=== PATIENT | female | born 2000 | race Caucasian/White ===

== ENCOUNTER 2022-03-04 05:52 | Inpatient (IN) ==
[2022-03-04 06:07] VITALS: BMI 40.2
[2022-03-04 06:20] LABS: BILIRUBIN,URINE NEGATIVE (NEGATIVE); BLOOD/HEMOGLOBIN,URINE 1+ (NEGATIVE); GLUCOSE, URINE NEGATIVE (NEGATIVE); KETONES,URINE NEGATIVE (NEGATIVE); LEUKOCYTE ESTERASE ,URINE 1+ (NEGATIVE); NITRITES,URINE NEGATIVE (NEGATIVE); PROTEIN,URINE NEGATIVE (NEGATIVE); UROBILINOGEN,URINE NORMAL (NORMAL)
[2022-03-04 06:29] LABS: APPEARANCE,URINE CLEAR (CLEAR); BACTERIA,URINE NEGATIVE /HPF (NEGATIVE); COLOR,URINE YELLOW (YELLOW); RBC,URINE 0-2 /HPF (0-3); SQUAMOUS EPITHELIAL CELL,UR MANY /HPF (NEGATIVE)
[2022-03-04 06:30] LABS: AMNISURE ROM TEST THERE IS A RUPTURE (NO RUPTURE)
[2022-03-04] MEDS ORDERED: STADOL INJ IVP PRN (07:00)
[2022-03-04] MEDS ORDERED: D5 LR + PITOCIN 10 UNITS/L 10 UNITS/1,000 ML BAG IV PRN (07:00)
[2022-03-04] MEDS ORDERED: PITOCIN ONE ×3 (07:42→16:05)
[2022-03-04] MEDS ORDERED: D5 1/2 NS 1,000 ML 1,000 ML IV ONE (07:43)
[2022-03-04] MEDS ORDERED: D5 LR + PITOCIN 10 UNITS/L 10 UNITS/1,000 ML BAG IV ONE (07:43)
[2022-03-04] MEDS ORDERED: BETADINE SOLN ONE (07:43)
[2022-03-04] MEDS ORDERED: D5 1/2 NS 1,000 mL + PITOCIN 20 UNITS/L IV 20 UNITS/1,000 ML BAG IV ONE (07:44)
[2022-03-04] MEDS ORDERED: AMPICILLIN VIAL 2 GRAM 2 G in NS 100 ML IV 100 ML IV NR (08:00)
[2022-03-04] MEDS ORDERED: PHENERGAN INJ 25 MG IM PRN ×2 (08:02→17:47)
[2022-03-04] MEDS ORDERED: PITOCIN IVP ONE (08:02)
[2022-03-04] MEDS ORDERED: REGLAN INJ 10 MG VIAL IVP PRN ×2 (08:02→17:47)
[2022-03-04] MEDS ORDERED: NS 100 ML IV 100 ML ONE ×3 (08:11→15:28)
[2022-03-04] MEDS ORDERED: AMPICILLIN VIAL 2 GRAM ONE (08:11)
[2022-03-04 08:49] LABS: BLOOD UREA NITROGEN 4 mg/dL (7-18); CARBON DIOXIDE 22.9 mmol/L (21-32); CHLORIDE 106 mmol/L (98-107); CREATININE 0.51 mg/dL (0.55-1.02); SODIUM 139 mmol/L (136-145); eGFR NON BLACK RACES > 60 (>60)
[2022-03-04 08:51] LABS: BASOPHILS % (AUTO) 0.1 % (0.2-1.0); EOSINOPHILS # (AUTO) 0.1 x10^3/uL (0.0-0.2); EOSINOPHILS % (AUTO) 0.6 % (0.9-2.9); HEMATOCRIT 31.2 % (36.0-47.0); HEMOGLOBIN 10.7 g/dL (12.0-16.0); LYMPHOCYTES # (AUTO) 1.9 X10^3/uL (1.3-2.9); MEAN CORPUSCULAR HEMOGLOBIN 26.2 pg (27.0-34.0); MEAN CORPUSCULAR HGB CONC 34.2 g/dL (33.0-35.0); MEAN CORPUSCULAR VOLUME 76.6 fL (80.0-100.0); MEAN PLATELET VOLUME 8.8 fL (7.4-11.0); MONOCYTES # (AUTO) 0.6 x10^3/uL (0.3-0.8); MONOCYTES % (AUTO) 5.6 % (0.0-13.0); NEUTROPHILS # (AUTO) 8.2 x10^3/uL (2.2-4.8); NEUTROPHILS % (AUTO) 75.7 % (42.0-75.0); RED BLOOD COUNT 4.07 X10^6/uL (3.5-5.4); RED CELL DISTRIBUTION WIDTH 14.6 % (11.6-16.5); WHITE BLOOD COUNT 10.8 X10^3/uL (3.6-10.0)
[2022-03-04] MEDS ORDERED: D5 1/2 NS 1,000 ML 1,000 ML IV SCH (09:00)
--- NOTE | 2022-03-04 09:32 | DR.OB ---
OB Quick Note - Assessment/Plan Assessment/Plan: L&D 03/04/22 at 9:10am Pitocin=4mu/min. Ampicillin S-No complaint. O-Afebrile,VSS SAL=261 with good LTV, +accel, no decel. CTX=q 1 1/2 to 2 min., mild to moderate by palpation CVX=2cm/50%/-1/VTX SROM with clear fluid. IUPC and FSE placed. A-IUP at 38 6/7 weeks with SROM +GBS P-Continue pitocin induction ABX in labor for +GBS Anticipate
[2022-03-04] MEDS ORDERED: TYLENOL 500 MG TAB EXTRA STRENGTH PO ONE ×2 (09:50→09:54)
[2022-03-04] MEDS ORDERED: REGLAN INJ 10 MG VIAL ONE ×2 (10:55→15:41)
[2022-03-04] MEDS ORDERED: STADOL INJ ONE (11:12)
[2022-03-04] MEDS ORDERED: FENTANYL VIAL INJ 100 mcg ONE ×3 (11:36→16:52)
[2022-03-04] MEDS ORDERED: LR 1,000 ML IV 1,000 ML IV ONE ×3 (11:36→15:49)
[2022-03-04] MEDS ORDERED: NAROPIN EPIDURAL 0.2% 100 ML ONE (11:37)
[2022-03-04] MEDS ORDERED: AMPICILLIN VIAL 1 GRAM 1 G in NS 50 ML IV + SPIKE MINIBAG* 50 ML IV SCH (12:06)
[2022-03-04] MEDS ORDERED: AMPICILLIN VIAL 1 GRAM ONE (13:38)
[2022-03-04] MEDS ORDERED: ANCEF VIAL 1 GRAM ONE (15:27)
[2022-03-04] MEDS ORDERED: XYLOCAINE-MPF 2% ONE (15:36)
[2022-03-04] MEDS ORDERED: PEPCID 20 MG VIAL ONE (15:41)
[2022-03-04] MEDS ORDERED: ZOFRAN INJ 4 MG VIAL ONE ×2 (15:41)
[2022-03-04] MEDS ORDERED: DILAUDID INJ ONE (16:18)
[2022-03-04] MEDS ORDERED: VERSED ONE (16:25)
[2022-03-04] MEDS ORDERED: KETAMINE HCL ONE (16:26)
[2022-03-04] MEDS ORDERED: DIPRIVAN VIAL 20 ML ONE ×2 (16:47→16:50)
--- NOTE | 2022-03-04 17:45 | DR.OB ---
OB Quick Note - Assessment/Plan Assessment/Plan: L&D 03/04/22 at 15:20 Pitocin=12mu/min. Ampicillin S-No complaint. s/p epidural. O-Afebrile,VSS TOL=020 with good LTV, +accel, no decel. CTX=q 1 1/2 min., about 55-65mmHg CVX=3-4cm/75%/-1 (no change in 4 hours) with caput noted A-IUP at 39 1/7 weeks with failure to dilate P-To C/S
[2022-03-04] MEDS ORDERED: BENADRYL INJ 50 MG VIAL IVP PRN ×2 (17:47→18:42)
[2022-03-04] MEDS ORDERED: BARHEMSYS INJ IVP PRN (17:47)
[2022-03-04] MEDS ORDERED: ZOFRAN INJ 4 MG VIAL IVP PRN ×2 (17:47→18:42)
[2022-03-04] MEDS ORDERED: D5 1/2 NS 1,000 ML 1,000 ML with PITOCIN 20 UNITS IV SCH ×2 (18:42)
[2022-03-04] MEDS ORDERED: ADACEL or BOOSTRIX TDaP VACCINE IM ONE (18:42)
[2022-03-04] MEDS ORDERED: PERCOCET TAB 5/325 MG PO PRN (18:42)
[2022-03-04] MEDS ORDERED: MYLICON TAB 80 MG CHEW PO PRN (18:42)
[2022-03-04] MEDS ORDERED: NARCAN INJ IVP PRN (18:42)
[2022-03-04] MEDS: TORADOL 30 MG VIAL IVP PRN (19:05)
[2022-03-05] MEDS: TORADOL 30 MG VIAL IVP PRN (00:55)
[2022-03-05 05:08] LABS: HEMOGLOBIN 8.2 g/dL (12.0-16.0)
[2022-03-05] MEDS: FERROUS GLUCONATE PO SCH ×2 (07:50→16:47)
[2022-03-05] MEDS: PROTONIX TAB 40 MG PO SCH (08:46)
[2022-03-05] MEDS: PRENATAL PLUS PO SCH (08:46)
[2022-03-05] MEDS: MOTRIN TAB 800 MG PO PRN ×2 (11:57→20:15)
[2022-03-05] MEDS: COLACE CAP 100 MG PO SCH ×2 (12:04→20:14)
[2022-03-05] MEDS: BACTROBAN TOPICAL OINT TOP SCH ×2 (14:56→21:06)
[2022-03-05] MEDS: PERCOCET TAB 5/325 MG PO PRN ×2 (16:47→21:57)
[2022-03-06] MEDS: MOTRIN TAB 800 MG PO PRN (03:04)
[2022-03-06] MEDS: BACTROBAN TOPICAL OINT TOP SCH (06:14)
[2022-03-06 08:18] VITALS: BP 133/74
[2022-03-06] MEDS: PROTONIX TAB 40 MG PO SCH (08:18)
[2022-03-06] MEDS: PRENATAL PLUS PO SCH (08:18)
[2022-03-06] MEDS: COLACE CAP 100 MG PO SCH (08:18)
[2022-03-06] MEDS: FERROUS GLUCONATE PO SCH (08:18)
[2022-03-06] MEDS: PERCOCET TAB 5/325 MG PO PRN (10:43)
== END 2022-03-06 10:55 | disposition home or self-care (01) | DRG 787 ==
LOC: ER 05:54 → LD 07:41 → MED/SURG 18:02
PROVIDERS: ADMIT Specialist; ATTEND Specialist
DX: Z37.0 Single live birth; D50.8 Other iron deficiency anemias; O62.0 Primary inadequate contractions; B95.1 Streptococcus, group B, as the cause of diseases classified elsewhere; K21.9 Gastro-esophageal reflux disease without esophagitis; O99.013 Anemia complicating pregnancy, third trimester; Z3A.38 38 weeks gestation of pregnancy; O99.613 Diseases of the digestive system complicating pregnancy, third trimester; O98.82 Other maternal infectious and parasitic diseases complicating childbirth; Z20.822 Contact with and (suspected) exposure to COVID-19